=== PATIENT | male | born 1985 | race Caucasian/White ===

== ENCOUNTER 2024-01-31 08:48 | Emergency (ER) | payer SELFPAY ==
[~2024-01-31] VITALS: Ht 162.6 cm; Wt 75.0 kg
[2024-01-31 09:22] VITALS: BP 148/88; PULSE 91; RESP 16; TEMP 98.4; O2SAT 98
[2024-01-31] MEDS: KETOROLAC TROMETH 30 MG/ML 1ML VIAL IV ONE (09:32)
[2024-01-31] MEDS ORDERED: IBUP-1456 PO (10:17)
== END 2024-01-31 10:25 | disposition home or self-care (01) ==
LOC: EDBD 08:48 → ER 08:48
DX: S80.12XA Contusion of left lower leg, initial encounter (principal); V43.52XA Car driver injured in collision with other type car in traffic accident, initial encounter; Y93.89 Activity, other specified; Y92.89 Other specified places as the place of occurrence of the external cause; Y99.8 Other external cause status
CPT/HCPCS: 73590; 96374; 99283; J1885